=== PATIENT | female | born 1995 | race Caucasian/White ===

== ENCOUNTER 2020-10-01 16:53 | Inpatient (IN) | payer OTHER ==
[~2020-10-01] VITALS: Ht 154.9 cm; Wt 64.9 kg
[2020-11-01] MEDS ORDERED: METHYLERGONOVINE MALEATE 0.2 MG/ML VIAL IM PRN (14:15)
[2020-11-01] MEDS ORDERED: CITRIC ACID/SODIUM CITRATE 30 ML SOLUTION UDCUP PO PRN (14:15)
[2020-11-01] MEDS ORDERED: RINGERS SOLUTION,LACTATED 1,000 ML IV PRN (14:15)
[2020-11-01] MEDS ORDERED: LIDOCAINE/PF 1% 30 ML VIAL SQ PRN (14:15)
[2020-11-01] MEDS ORDERED: OXYTOCIN 30 UNITS/LACT RINGERS 500 ML IV PRN ×3 (14:15→20:30)
[2020-11-01] MEDS ORDERED: METOCLOPRAMIDE HCL 5 MG/ML 2 ML VIAL IVP PRN (14:15)
[2020-11-01] MEDS ORDERED: OXYTOCIN 30 UNITS/LACT RINGERS 500 ML IV ONE (14:15)
[2020-11-01 15:06] VITALS: BP 114/74
[2020-11-01] MEDS ORDERED: MISOPROSTOL 25 MCG TABLET PR ONE (15:30)
[2020-11-01] MEDS: RINGERS SOLUTION,LACTATED 1,000 ML IV SCH ×3 (15:33→21:48)
[2020-11-01 15:44] LABS: BASOPHILS % (AUTO) 0.2 % (0.0-2.0); EOSINOPHILS % (AUTO) 0.3 % (1.0-6.0); HEMATOCRIT 35.3 % (36-46); HEMOGLOBIN 11.9 g/dL (12.0-16.0); LYMPHOCYTES # (AUTO) 2.4 K/uL (1.0-4.8); LYMPHOCYTES % (AUTO) 21.9 % (22.0-44.0); MEAN CORPUSCULAR HEMOGLOBIN 32.3 pg (26.0-34.0); MEAN CORPUSCULAR HGB CONC 33.9 G/dL (31.0-37.0); MEAN CORPUSCULAR VOLUME 95 fL (80-100); MONOCYTES # (AUTO) 0.7 K/uL (0.1-1.0); MONOCYTES % (AUTO) 6.3 % (2.0-9.0); NEUTROPHILS # (AUTO) 7.7 K/uL (1.8-7.7); NEUTROPHILS % (AUTO) 71.3 % (40.0-70.0); PLATELET COUNT (AUTO) 264 K/uL (150-450); RED BLOOD CELL COUNT(AUTO) 3.69 MIL/uL (4.00-5.20); RED CELL DISTRIBUTION WIDTH 13.6 % (11.5-14.5)
[2020-11-01] MEDS ORDERED: LEVO25TA9 PO (16:31)
[2020-11-01] MEDS ORDERED: PREN-217 PO (16:31)
[2020-11-01 18:09] LABS: COVID AG,FIA SOURCE NASOPHARYNGEAL
[2020-11-01] MEDS: OXYGEN THERAPY IH SCH (20:00)
[2020-11-01] MEDS ORDERED: ROPIVACAINE HCL/PF 0.2% 100 ML ED ONE (21:28)
[2020-11-01] MEDS ORDERED: ONDANSETRON HCL 4 MG/2 ML VIAL IVP PRN (22:00)
[2020-11-01] MEDS ORDERED: NALBUPHINE HCL 10 MG/ML VIAL IVP PRN (22:00)
[2020-11-01] MEDS ORDERED: ROPIVACAINE HCL/PF 0.2% 100 ML ED PRN (22:00)
[2020-11-01] MEDS ORDERED: DiphenhydrAMINE HCL 50 MG/ML VIAL IVP PRN (22:00)
[2020-11-02] MEDS: OXYGEN THERAPY IH SCH (00:01)
[2020-11-02] MEDS: RINGERS SOLUTION,LACTATED 1,000 ML IV SCH (00:13)
[2020-11-02] MEDS ORDERED: BENZOCAINE 20%/MENTHOL 56 GM SPRAY CANISTER TP PRN (02:30)
[2020-11-02] MEDS ORDERED: LANOLIN 7 GM OINTMENT TP PRN (02:30)
[2020-11-02] MEDS ORDERED: GLYCERIN/WITCH HAZEL LEAF 40 PADS JAR TP PRN (02:30)
[2020-11-02] MEDS ORDERED: MEASLES/MUMPS/RUBELLA VACCINE, LIVE 0.5 ML/VIAL SQ ONE (02:30)
[2020-11-02] MEDS: IBUPROFEN 600 MG TABLET PO SCH ×4 (04:06→21:14)
[2020-11-02] MEDS: SENNA/DOCUSATE SODIUM 8.6-50 MG TABLET PO SCH ×2 (08:54→21:14)
[2020-11-02 09:04] LABS: BASOPHILS % (AUTO) 0.1 % (0.0-2.0); EOSINOPHILS % (AUTO) 0.2 % (1.0-6.0); HEMOGLOBIN 9.2 g/dL (12.0-16.0); LYMPHOCYTES # (AUTO) 1.7 K/uL (1.0-4.8); LYMPHOCYTES % (AUTO) 12.7 % (22.0-44.0); MEAN CORPUSCULAR HEMOGLOBIN 32.5 pg (26.0-34.0); MEAN CORPUSCULAR HGB CONC 34.2 G/dL (31.0-37.0); MEAN CORPUSCULAR VOLUME 95 fL (80-100); MONOCYTES % (AUTO) 7.4 % (2.0-9.0); NEUTROPHILS # (AUTO) 10.8 K/uL (1.8-7.7); NEUTROPHILS % (AUTO) 79.6 % (40.0-70.0); PLATELET COUNT (AUTO)-OB 234 K/uL (150-450); RED BLOOD CELL COUNT(AUTO) 2.84 MIL/uL (4.00-5.20); RED CELL DISTRIBUTION WIDTH 13.5 % (11.5-14.5)
[2020-11-02] MEDS: FERROUS SULFATE 325 MG EC TABLET PO SCH (09:54)
[2020-11-03] MEDS: IBUPROFEN 600 MG TABLET PO SCH (04:16)
[2020-11-03 06:57] LABS: BASOPHILS % (AUTO) 0.4 % (0.0-2.0); EOSINOPHILS % (AUTO) 1.3 % (1.0-6.0); HEMATOCRIT 25.1 % (36-46); HEMOGLOBIN 8.6 g/dL (12.0-16.0); LYMPHOCYTES # (AUTO) 2.2 K/uL (1.0-4.8); LYMPHOCYTES % (AUTO) 20.9 % (22.0-44.0); MEAN CORPUSCULAR HEMOGLOBIN 33.2 pg (26.0-34.0); MEAN CORPUSCULAR HGB CONC 34.4 G/dL (31.0-37.0); MEAN CORPUSCULAR VOLUME 97 fL (80-100); MONOCYTES # (AUTO) 0.8 K/uL (0.1-1.0); MONOCYTES % (AUTO) 8.1 % (2.0-9.0); NEUTROPHILS # (AUTO) 7.2 K/uL (1.8-7.7); NEUTROPHILS % (AUTO) 69.3 % (40.0-70.0); PLATELET COUNT (AUTO)-OB 223 K/uL (150-450); RED BLOOD CELL COUNT(AUTO) 2.59 MIL/uL (4.00-5.20); RED CELL DISTRIBUTION WIDTH 13.7 % (11.5-14.5)
[2020-11-03] MEDS: SENNA/DOCUSATE SODIUM 8.6-50 MG TABLET PO SCH (09:37)
[2020-11-03] MEDS: FERROUS SULFATE 325 MG EC TABLET PO SCH (09:37)
[2020-11-03] MEDS ORDERED: SODIUM CHLORIDE 0.9% 1,950 ML IV ONE (10:15)
[2020-11-03] MEDS ORDERED: IRON SUCROSE COMPLEX 200 MG in SODIUM CHLORIDE 0.9% 100 ML IV ONE (10:15)
[2020-11-03] MEDS ORDERED: IRON SUCROSE COMPLEX 100 MG in SODIUM CHLORIDE 0.9% 100 ML IV ONE (10:15)
[2020-11-03] MEDS ORDERED: SODIUM CHLORIDE 0.9% 100 ML ONE (11:26)
[2020-11-03] MEDS ORDERED: ACET-3385 PO (12:21)
[2020-11-03] MEDS ORDERED: IBUP-2070 PO (12:21)
[2020-11-03] MEDS ORDERED: DOCU-275 PO (12:22)
[2020-11-03] MEDS ORDERED: HYDR30CR3 TP (12:25)
[2020-11-03] MEDS ORDERED: HYDR30CR79 RC (12:30)
== END 2020-11-03 13:50 | disposition home or self-care (01) | DRG 807 ==
LOC: 4S 11-01 13:35 → OBSVTOIN 11-01 13:35
PROVIDERS: ADMIT Obstetrics & Gynecology; ATTEND Obstetrics & Gynecology
PROC: 10E0XZZ Delivery of Products of Conception, External Approach (ICD-10-PCS; principal; 2020-11-02)
PROC: 0KQM0ZZ Repair Perineum Muscle, Open Approach (ICD-10-PCS; 2020-11-02)
PROC: 3E0R3BZ Introduction of Anesthetic Agent into Spinal Canal, Percutaneous Approach (ICD-10-PCS; 2020-11-02)
PROC: 00HU33Z Insertion of Infusion Device into Spinal Canal, Percutaneous Approach (ICD-10-PCS; 2020-11-02)
DX: O69.81X0 Labor and delivery complicated by cord around neck, without compression, not applicable or unspecified (principal); Z37.0 Single live birth; O70.1 Second degree perineal laceration during delivery; Z3A.38 38 weeks gestation of pregnancy; Z20.822 Contact with and (suspected) exposure to COVID-19
CPT/HCPCS: 86850; 86900; 86901; 87426; J1756; J2590; J2795; J7050; J7120